=== PATIENT | male | born 1940 | race Caucasian/White ===

== ENCOUNTER → 2018-06-06 | Day surgery (SDC) | payer OTHER ==
[~2018-06-06] VITALS: Ht 167.6 cm; Wt 55.3 kg
--- NOTE | 2018-06-06 13:18 | Operative Report ---
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 Informed consent was obtained. Patient was brought to the operating room where he was placed on a propofol sedation and a retrobulbar block was achieved without complication to the right eye. The right eye was prepped and draped in a normal sterile fashion. Paracenteses were made with stab incision blade. The anterior chamber was filled with Viscoat. The clear corneal incision was reopened bluntly using a Sinskey hook. Floppy iris syndrome was noted. The capsular bag was reinflated using viscoelastic the inferior crystal lens haptic was freed in its entirety and removed from the eye. The superior crystal lens haptic was mostly freed but was amputated at the foot /plate junction using intraocular scissors. The plate was removed from the eye relaxing incisions were made in the capsule and the sulcus lens was maneuvered into optic capture. Viscoelastic was removed from the eye and a 10-0 nylon suture was placed in the main incision. The eye was reformed using balanced salt solution and the pupil brought down using Miochol. Intracameral cefuroxime was placed. The wounds were found to be watertight and the eye held good pressure. There was no presentation of vitreous or iris presenting. Kaveh-poly- dex ointment was placed on the eye followed by patch and shield. The patient was brought to the postoperative area without incident where instructions were given to follow-up the next day for routine postoperative care.
== END ==
LOC: STS 01:41
DX: T85.29XA Other mechanical complication of intraocular lens, initial encounter (principal); H21.81 Floppy iris syndrome; H53.2 Diplopia; Y83.8 Other surgical procedures as the cause of abnormal reaction of the patient, or of later complication, without mention of misadventure at the time of the procedure; I25.10 Atherosclerotic heart disease of native coronary artery without angina pectoris; M19.90 Unspecified osteoarthritis, unspecified site
CPT/HCPCS: J2001; J2250